=== PATIENT | male | born 1955 | race Caucasian/White ===

== ENCOUNTER 2016-09-07 16:30 | Emergency (ER) | payer OTHER, MEDICARE ==
[~2016-09-07 16:30] MED LIST: ALDACTONE25 M1 PO; ASPIR 8181 MG PO; COLACE100 MG PO; COREG3.125 MG PO; COREG6.25 MG PO; COUMADIN5 M1 PO; CRESTOR40 MG PO; FUROSEMIDE80 M2 PO; GABAPENTIN300 MG PO; INSULIN GLARGINE SC; JUVEN PACKET1 EACH PO; LANTUS100 U/ML SC; LANTUS100 UNITS/ SC; LIPITOR40 M1 PO; LISINOPRIL10 MG PO; LOVENOX100 MG/ML SQ; METFORMIN HCL500 MG PO; METOPROLOL SUC100 M1 PO; MULTIVITAMIN W/1 T PO; NORCO 5/3251 TAB PO; NOVOLOG100 UNIT/1 SQ; OMEPRAZOLE20 MG PO; PREDNISONE10 M1 PO; PROAIR HFA8.5 GM INH; SSD20 GM TP; TRIAMCINOLONE A15 GM TP; XARELTO15 M1 PO; XARELTO20 M1 PO; ZESTRIL40 M2 PO; [UNRECOGNIZED DRUG - OTHER] PO; [UNRECOGNIZED DRUG - OTHER] PO
[2016-09-07] MEDS ORDERED: AMOXICILLIN500 M1 PO (18:04)
[2016-09-07] MEDS ORDERED: CETIRIZINE HCL10 M2 PO (18:04)
[2016-09-07] MEDS ORDERED: FLONASE ALLERG9.9 ML (18:05)
[2016-09-07] MEDS ORDERED: SYNTHROID50 MC1 PO (18:06)
[2016-09-07] MEDS ORDERED: EAR DROPS15 M2 OT (18:08)
== END 2016-09-07 18:58 ==
LOC: EDMED 16:30
DX: M25.611 Stiffness of right shoulder, not elsewhere classified (principal); I25.10 Atherosclerotic heart disease of native coronary artery without angina pectoris; I10 Essential (primary) hypertension; E11.9 Type 2 diabetes mellitus without complications; J45.909 Unspecified asthma, uncomplicated; J44.9 Chronic obstructive pulmonary disease, unspecified; K21.9 Gastro-esophageal reflux disease without esophagitis; Z79.4 Long term (current) use of insulin; Z79.82 Long term (current) use of aspirin; Z79.899 Other long term (current) drug therapy; Z95.1 Presence of aortocoronary bypass graft